=== PATIENT | male | born 1945 | race Caucasian/White ===

== ENCOUNTER → 2022-06-13 | Outpatient (CLI) | payer OTHER | END | disposition home or self-care (01) | LOC: CT 01:00 | PROVIDERS: ATTEND Nurse Practitioner | DX: I71.43 Infrarenal abdominal aortic aneurysm, without rupture (principal); I25.10 Atherosclerotic heart disease of native coronary artery without angina pectoris; K80.20 Calculus of gallbladder without cholecystitis without obstruction; K57.32 Diverticulitis of large intestine without perforation or abscess without bleeding; N26.1 Atrophy of kidney (terminal); Z98.890 Other specified postprocedural states ==

== ENCOUNTER 2023-06-07 11:22 | Inpatient (IN) | payer OTHER ==
[~2023-06-07] VITALS: Ht 177.8 cm; Wt 79.9 kg
[2023-06-07] VITALS (11 sets, daily range): BP systolic 109–167; BP diastolic 58–89
[~2023-06-07 11:22] MED LIST: ASPIRIN81 M1 PO; ATENOLOL25 MG PO; CIPRO500 MG PO; CITALOPRAM40 MG PO; D3-200050 MCG PO; FISH OIL 1,0001 EAC6 PO; LIPITOR20 MG PO; LISINOPRIL-HCT1 EACH PO; METRONIDAZOLE500 M1 PO; NORVASC5 MG PO; VITAMIN B121000 MC3 PO
[2023-06-07] MEDS ORDERED: FAMOTIDINE 20 MG TAB PO ONE (12:45)
[2023-06-07] MEDS ORDERED: Pantoprazole Sodium 40 MG VIAL IV ONE (12:45)
[2023-06-07] MEDS ORDERED: Water, Sterile 10 ML VIAL ONE (12:58)
[2023-06-07 12:59] LABS: BASO % 0.2 % (0.0-1.0); EOS % 0.1 % (1.0-4.0); HEMATOCRIT 22.7 % (42.0-52.0); LYMPH # 0.7 10*3/uL (1.3-4.4); LYMPH % 4.7 % (27.0-41.0); MEAN CELL VOLUME 105.1 fl (80.0-94.0); MEAN CORPUSCULAR HGB 32.9 pg (27.0-31.0); MEAN CORPUSCULAR HGB CONC 31.3 g/dl (33.0-37.0); MEAN PLATELET VOLUME 9.8 fl (9.6-12.3); MONO # 0.9 10*3/uL (0.1-1.0); NEUT # 12.7 10*3/uL (2.3-7.9); NEUT % 88.2 % (47.0-73.0); PLATELET COUNT AUTOMATED 385 10*3/uL (130-400); RED BLOOD COUNT 2.16 10*6/uL (4.50-5.90); RED CELL DISTRI WIDTH 14.8 % (0-14.5); WHITE BLOOD COUNT 14.4 10*3/uL (4.8-10.8)
[2023-06-07 13:09] LABS: ACT PARTIAL THROMBO TIME 28.8 SECONDS (20.0-32.1)
[2023-06-07] MEDS ORDERED: IOHEXOL 300 MG/ML 100 ML VIAL IV ONE (13:20)
[2023-06-07 13:21] LABS: ALKALINE PHOSPHATASE 93 U/L (46-116); BUN 18 mg/dl (9-23); CHLORIDE 103 mmol/L (98-107); LIPASE 52 U/L (12-53); POTASSIUM 3.6 mmol/L (3.4-5.1); SGPT/ALT 13 U/L (5-49); TOTAL PROTEIN 6.5 gm/dL (6.0-8.0)
[2023-06-07] MEDS ORDERED: IOHEXOL 300 MG/ML 100 ML VIAL ONE (13:33)
[2023-06-07] MEDS ORDERED: BISACODYL 10 MG SUPP R PRN (16:20)
[2023-06-07] MEDS ORDERED: Ondansetron Hydrochloride 4 MG/2 ML VIAL IV PRN (16:20)
[2023-06-07] MEDS ORDERED: ACETAMINOPHEN 650 MG SUPP R PRN (16:20)
[2023-06-07] MEDS ORDERED: MORPHINE Sulfate 2 MG/ML SYR IV PRN (16:20)
[2023-06-07] MEDS ORDERED: Pantoprazole Sodium 40 MG VIAL IV SCH (16:20)
[2023-06-07] MEDS ORDERED: ACETAMINOPHEN 325 MG TAB PO PRN (16:20)
[2023-06-07] MEDS ORDERED: SODIUM CHLORIDE 0.9% 1,000 ML IV SCH (16:30)
[2023-06-08] VITALS: BP 149/73
[2023-06-08] MEDS ORDERED: Pantoprazole Sodium 40 MG VIAL IV SCH (06:00)
[2023-06-08 07:19] LABS: BASO % 0.5 % (0.0-1.0); EOS # 0.1 10*3/uL (0.0-0.4); EOS % 1.7 % (1.0-4.0); HEMATOCRIT 26.1 % (42.0-52.0); LYMPH # 0.6 10*3/uL (1.3-4.4); MEAN CELL VOLUME 101.2 fl (80.0-94.0); MEAN CORPUSCULAR HGB 32.2 pg (27.0-31.0); MEAN CORPUSCULAR HGB CONC 31.8 g/dl (33.0-37.0); MEAN PLATELET VOLUME 11.1 fl (9.6-12.3); MONO # 0.6 10*3/uL (0.1-1.0); MONO % 7.8 % (3.0-9.0); NEUT # 6.6 10*3/uL (2.3-7.9); PLATELET COUNT AUTOMATED 325 10*3/uL (130-400); RED BLOOD COUNT 2.58 10*6/uL (4.50-5.90); RED CELL DISTRI WIDTH 15.6 % (0-14.5); WHITE BLOOD COUNT 8.1 10*3/uL (4.8-10.8)
[2023-06-08 07:20] LABS: ACT PARTIAL THROMBO TIME 30.4 SECONDS (20.0-32.1)
[2023-06-08 07:43] LABS: ALKALINE PHOSPHATASE 85 U/L (46-116); BUN 14 mg/dl (9-23); CHLORIDE 106 mmol/L (98-107); POTASSIUM 3.6 mmol/L (3.4-5.1); SGPT/ALT 10 U/L (5-49); TOTAL PROTEIN 5.9 gm/dL (6.0-8.0)
[2023-06-08 08:00] VITALS: BP 164/81
[2023-06-08] MEDS ORDERED: SUCRALFATE 1 GM TAB PO SCH (11:30)
[2023-06-08 12:00] VITALS: BP 150/77
[2023-06-08 16:00] VITALS: BP 152/76
[2023-06-08 20:00] VITALS: BP 105/66
[2023-06-09 00:32] VITALS: BP 147/77
[2023-06-09 06:39] LABS: BASO # 0.1 10*3/uL (0.0-0.1); BASO % 0.7 % (0.0-1.0); EOS # 0.3 10*3/uL (0.0-0.4); EOS % 3.9 % (1.0-4.0); HEMATOCRIT 26.4 % (42.0-52.0); LYMPH # 0.7 10*3/uL (1.3-4.4); MEAN CELL VOLUME 100.4 fl (80.0-94.0); MEAN CORPUSCULAR HGB 32.3 pg (27.0-31.0); MEAN CORPUSCULAR HGB CONC 32.2 g/dl (33.0-37.0); MEAN PLATELET VOLUME 10.7 fl (9.6-12.3); MONO # 0.6 10*3/uL (0.1-1.0); MONO % 7.4 % (3.0-9.0); NEUT % 78.3 % (47.0-73.0); PLATELET COUNT AUTOMATED 347 10*3/uL (130-400); RED BLOOD COUNT 2.63 10*6/uL (4.50-5.90); RED CELL DISTRI WIDTH 15.3 % (0-14.5); WHITE BLOOD COUNT 7.7 10*3/uL (4.8-10.8)
[2023-06-09 07:36] LABS: BUN 11 mg/dl (9-23); CHLORIDE 105 mmol/L (98-107); POTASSIUM 3.5 mmol/L (3.4-5.1)
[2023-06-09 08:00] VITALS: BP 143/76
[2023-06-09] MEDS ORDERED: NA FERRIC GLUC CMPL/SUCROSE 62.5 MG/5 ML VIAL IV SCH (10:00)
[2023-06-09 11:59] LABS: BILIRUBIN Negative (Negative); BLOOD Negative (Negative); CLARITY Clear (Clear); COLOR Dark Yellow (Yellow); GLUCOSE Negative (Negative); KETONE Trace (Negative); LEUKO ESTERASE Negative (Negative); NITRITE Negative (Negative); PH 5.5 (4.5-8.0); SPECIFIC GRAVITY >= 1.030 (1.001-1.030)
[2023-06-09 12:00] VITALS: BP 137/75
[2023-06-09 12:12] LABS: RBC 0-2 rbc/hpf (0-2)
[2023-06-09 12:13] LABS: BACTERIA 1+; MUCOUS 2+
[2023-06-09] MEDS ORDERED: PROTONIX40 MG PO ×2 (13:24)
[2023-06-09] MEDS ORDERED: Carafate1 GM PO (13:24)
[2023-06-09] MEDS ORDERED: IRON325 M3 PO (13:24)
== END 2023-06-09 15:23 | disposition home or self-care (01) | DRG 378 ==
LOC: ED 11:22 → EDHOLD 16:06 → 5E 16:19
PROVIDERS: Internal Medicine; Nurse Practitioner; Student in an Organized Health Care Education/Training Program; ADMIT Family Medicine; ATTEND Family Medicine
PROC: 30233N1 Transfusion of Nonautologous Red Blood Cells into Peripheral Vein, Percutaneous Approach (ICD-10-PCS; principal; 2023-06-07)
DX: K29.01 Acute gastritis with bleeding (principal); E44.1 Mild protein-calorie malnutrition; E87.1 Hypo-osmolality and hyponatremia; R65.10 Systemic inflammatory response syndrome (SIRS) of non-infectious origin without acute organ dysfunction; K57.33 Diverticulitis of large intestine without perforation or abscess with bleeding; K27.4 Chronic or unspecified peptic ulcer, site unspecified, with hemorrhage; D53.9 Nutritional anemia, unspecified; E78.5 Hyperlipidemia, unspecified; I71.40 Abdominal aortic aneurysm, without rupture, unspecified; I10 Essential (primary) hypertension; Z79.899 Other long term (current) drug therapy; Z79.01 Long term (current) use of anticoagulants; Z79.2 Long term (current) use of antibiotics; Z87.891 Personal history of nicotine dependence; Z83.3 Family history of diabetes mellitus; Z82.49 Family history of ischemic heart disease and other diseases of the circulatory system; Z68.25 Body mass index [BMI] 25.0-25.9, adult

== ENCOUNTER → 2023-06-24 | Outpatient (CLI) | payer OTHER ==
[~2023-06-24] MED LIST changes: +Carafate1 GM PO; +IOHEXOL 350 MG/ML 100 ML VIAL IV ONE; +IRON325 M3 PO; +PROTONIX40 MG PO; +SODIUM CHLORIDE 0.9% 100 ML BAG IV ONE
== END | disposition home or self-care (01) ==
LOC: CT 01:55
PROVIDERS: ATTEND Nurse Practitioner
DX: K80.20 Calculus of gallbladder without cholecystitis without obstruction (principal); J90 Pleural effusion, not elsewhere classified; I31.39 Other pericardial effusion (noninflammatory); K57.30 Diverticulosis of large intestine without perforation or abscess without bleeding; N43.2 Other hydrocele; K40.20 Bilateral inguinal hernia, without obstruction or gangrene, not specified as recurrent; Z95.820 Peripheral vascular angioplasty status with implants and grafts

== ENCOUNTER → 2023-07-02 | Outpatient (CLI) | payer OTHER ==
[~2023-07-02] MED LIST changes: -IOHEXOL 350 MG/ML 100 ML VIAL IV ONE; -SODIUM CHLORIDE 0.9% 100 ML BAG IV ONE
== END ==
LOC: CT 00:40
PROVIDERS: ATTEND Internal Medicine
DX: J84.10 Pulmonary fibrosis, unspecified (principal); I51.7 Cardiomegaly; J90 Pleural effusion, not elsewhere classified; I25.10 Atherosclerotic heart disease of native coronary artery without angina pectoris

== ENCOUNTER → 2024-07-23 | Outpatient (CLI) | payer OTHER ==
[~2024-07-23] MED LIST changes: +IOHEXOL 350 MG/ML 100 ML VIAL IV ONE; +SODIUM CHLORIDE 0.9% 100 ML BAG IV ONE
== END | disposition home or self-care (01) ==
LOC: CT 07:18
PROVIDERS: ATTEND Nurse Practitioner
DX: N28.1 Cyst of kidney, acquired (principal); K57.30 Diverticulosis of large intestine without perforation or abscess without bleeding; K80.20 Calculus of gallbladder without cholecystitis without obstruction